=== PATIENT | female | born 1995 | race Caucasian/White ===

== ENCOUNTER 2017-04-27 20:11 | Outpatient (CLI) | payer OTHER ==
[~2017-04-27] VITALS: Ht 144.8 cm; Wt 80.0 kg
== END 2017-04-27 22:30 | disposition home or self-care (01) ==
LOC: LDOP 20:11
PROVIDERS: ATTEND Student in an Organized Health Care Education/Training Program
DX: O26.893 Other specified pregnancy related conditions, third trimester (principal); O46.93 Antepartum hemorrhage, unspecified, third trimester; O62.9 Abnormality of forces of labor, unspecified; R10.9 Unspecified abdominal pain; Z3A.35 35 weeks gestation of pregnancy
CPT/HCPCS: 59025; 81001; 87086; 99201; G0463

== ENCOUNTER 2017-05-10 11:36 | Inpatient (IN) | payer OTHER ==
[~2017-05-10] VITALS: Ht 144.8 cm; Wt 80.4 kg
[2017-05-10 11:49] VITALS: BP 102/59
[2017-05-10] MEDS ORDERED: LACTATED RINGERS 1,000 ML IVBOLUS ONE ×2 (14:00→15:30)
[2017-05-10] MEDS ORDERED: FENTANYL PF 100 MCG/2ML ONE (14:35)
[2017-05-10] MEDS ORDERED: FENTANYL PF 100 MCG/2ML IV ONE (15:00)
[2017-05-10] MEDS ORDERED: OXYTOCIN 30U/ 0.9% NaCL 500ML 500 ML IV SCH (15:08)
[2017-05-10] MEDS: LACTATED RINGERS 1,000 ML IV SCH ×2 (15:10→19:50)
[2017-05-10 19:52] VITALS: BP 111/61
[2017-05-10] MEDS ORDERED: NEWBORN KIT ONE (20:09)
[2017-05-11] MEDS ORDERED: FENTANYL PF 100 MCG/2ML ONE ×2 (00:01→15:29)
[2017-05-11] MEDS ORDERED: SODIUM CITRATE/CITRIC ACID 30 ML UDC ONE (00:16)
[2017-05-11] MEDS ORDERED: METOCLOPRAMIDE 5 MG/ML, 2ML ONE (00:16)
[2017-05-11] MEDS: LACTATED RINGERS 1,000 ML IV SCH ×7 (00:41→23:41)
[2017-05-11] MEDS ORDERED: FENTANYL PF 100 MCG/2ML IV ONE ×2 (01:30→16:00)
[2017-05-11] MEDS ORDERED: NEWBORN KIT ONE (11:29)
[2017-05-11] MEDS ORDERED: morphine SULFATE/PF 0.5 MG/ML, 10ML ONE (11:32)
[2017-05-11] MEDS ORDERED: LACTATED RINGERS 1,000 ML IVBOLUS ONE (12:00)
[2017-05-11] MEDS ORDERED: METOCLOPRAMIDE 5 MG/ML, 2ML IV ONE (12:00)
[2017-05-11] MEDS ORDERED: SODIUM CITRATE/CITRIC ACID 30 ML UDC PO ONE (12:00)
[2017-05-11] MEDS: OXYTOCIN 30U/ 0.9% NaCL 500ML 500 ML IV SCH ×2 (13:41→23:41)
[2017-05-11] MEDS ORDERED: ONDANSETRON 2MG/ML, 2ML IV PRN (14:00)
[2017-05-11] MEDS ORDERED: ACETAMINOPHEN 325 MG TABLET PO PRN (14:00)
[2017-05-11] MEDS ORDERED: SIMETHICONE 80 MG CHEW TAB PO PRN (14:00)
[2017-05-11] MEDS ORDERED: CALCIUM CARBONATE 500 MG TAB.CHEW PO PRN (14:00)
[2017-05-11] MEDS ORDERED: METOCLOPRAMIDE 5 MG/ML, 2ML IV PRN (14:00)
[2017-05-11] MEDS ORDERED: OXYcodone/APAP 5/325MG TABLET PO PRN ×2 (14:00→16:30)
[2017-05-11] MEDS ORDERED: DOCUSATE 100 MG CAPSULE PO PRN (14:00)
[2017-05-11] MEDS ORDERED: HYDROmorphone 1 MG/ML, 1ML ONE (15:30)
[2017-05-11] MEDS ORDERED: HYDROmorphone 1 MG/ML, 1ML IV PRN (16:00)
[2017-05-11] MEDS ORDERED: DIPHENHYDRAMINE 50 MG/ML, 1ML IV PRN (16:30)
[2017-05-11] MEDS ORDERED: HYDROmorphone 1 MG/ML, 1ML IVPush PRN (16:30)
[2017-05-11] MEDS: KETOROLAC 30 MG/1 ML IV SCH ×2 (17:14→23:25)
[2017-05-11 17:25] VITALS: BP 102/62
[2017-05-11 19:30] VITALS: BP 106/63
[2017-05-11 23:53] VITALS: BP 97/54
[2017-05-12] MEDS: OXYcodone/APAP 5/325MG TABLET PO PRN ×2 (01:58→11:41)
[2017-05-12 05:30] VITALS: BP 105/59
[2017-05-12] MEDS: KETOROLAC 30 MG/1 ML IV SCH ×2 (05:32→11:41)
[2017-05-12] MEDS: LACTATED RINGERS 1,000 ML IV SCH ×2 (05:41→09:41)
[2017-05-12 06:55] VITALS: BP 96/53
[2017-05-12] MEDS ORDERED: PRENATAL VIT/IRON/FA 1 EACH TABLET PO SCH (09:00)
[2017-05-12] MEDS: OXYTOCIN 30U/ 0.9% NaCL 500ML 500 ML IV SCH (09:41)
[2017-05-12] MEDS ORDERED: IBUP-1222 PO (11:52)
[2017-05-12] MEDS ORDERED: OXYC-302 PO (11:52)
[2017-05-12] MEDS ORDERED: DOCU-30 PO (11:53)
== END 2017-05-12 12:27 | disposition home or self-care (01) | DRG 765 ==
LOC: LDOP 11:36 → LDIP 13:30 → OBSVTOIN 15:08 → 2NW 05-11 15:16
PROVIDERS: ADMIT Student in an Organized Health Care Education/Training Program; ATTEND Student in an Organized Health Care Education/Training Program
PROC: 10D00Z1 Extraction of Products of Conception, Low, Open Approach (ICD-10-PCS; principal; 2017-05-10)
DX: O74.5 Spinal and epidural anesthesia-induced headache during labor and delivery (principal); Q79.2 Exomphalos; Z37.0 Single live birth; Z3A.37 37 weeks gestation of pregnancy; M40.209 Unspecified kyphosis, site unspecified
CPT/HCPCS: 36415; 82962; 85025; 86850; 86900; G0378; J1170; J1885; J2274; J2405; J3010; J2590; J2765; J7120

== ENCOUNTER 2017-11-11 18:20 | Emergency (ER) | payer OTHER ==
[~2017-11-11] VITALS: Ht 144.8 cm; Wt 77.5 kg
[~2017-11-11 18:20] MED LIST: DOCU-131 PO; IBUP-1222 PO; OXYC-302 PO
[2017-11-11 18:28] VITALS: BP 110/74
== END 2017-11-11 19:54 | disposition home or self-care (01) ==
LOC: ED 19:45
DX: H66.001 Acute suppurative otitis media without spontaneous rupture of ear drum, right ear (principal); J02.8 Acute pharyngitis due to other specified organisms
CPT/HCPCS: 99283